=== PATIENT | female | born 1985 | race African-American/Black ===

== ENCOUNTER 2021-10-25 05:14 | Emergency (ER) | payer MEDICAID, SELFPAY ==
[2021-10-25 06:16] VITALS: BP 133/83; PULSE 88; RESP 18; TEMP 36.8; O2SAT 97; BMI 36.5
[2021-10-25 06:22] LABS: Glucose, Whole Blood 237 mg/dL (60-115)
--- NOTE | 2021-10-25 09:00 | ED_ITS ---
HPI - General Adult General Chief complaint: General Medical Stated complaint: needs insulin Time Seen by Provider: 10/25/21 08:38 Source: patient Mode of arrival: ambulatory Limitations: no limitations History of Present Illness HPI narrative: 36-year-old female with past medical history of diabetes presents to ED for refill of insulin. Patient states she is from [place] and ran out of her insulin. Patient states she takes Basaglar 20 units at bedtime. Patient states she called her primary care in [place] and informed her since she is in [place] she will have to be seen by provider in [facility] for insulin. Patient denies any chest pain, shortness of breath, weakness, dizziness, lethargy. Patient's secondary complaint is mild swelling in the right middle finger near the nail that has been present for least 12 days. Related Data Previous Rx's Medication Instructions Recorded cephalexin 500 mg capsule 500 mg PO QID 7 Days #28 cap 10/25/21 insulin glargine 100 unit/mL (3 20 unit (0.2 mL) SUBCUT QPM 30 10/25/21 mL) subcutaneous pen (Basaglar Days #15 ml KwikPen U-100 Insulin) naproxen 500 mg tablet 500 mg PO BID PRN 10 Days #20 tab 10/25/21 Allergies Allergy/AdvReac Type Severity Reaction Status Date / Time No Known Allergies Allergy Verified 10/25/21 06:19 Review of Systems Review of Systems: Medication refill. Right ring finger mild pain Yes all other systems are reviewed and are negative PMFSH Past Medical History Medical History (Updated 10/25/21 @ 09:11 by ADRIÁN Erazo) Diabetes Social History Social History Advance Directives: No Advance Directives Information Provided: No Patient : No Physical Exam Vital Signs: Vital Signs: Last Vital Signs Temp 98.3 F 10/25/21 06:16 Pulse 88 10/25/21 06:16 Resp 18 10/25/21 06:16 BP 133/83 10/25/21 06:16 Pulse Ox 97 10/25/21 06:16 BMI result Body Mass Index 36.5 Const: General: cooperative, healthy appearing, comfortable, no acute distress, well developed, alert, awake and Physically active Orientation/consciousness: patient oriented x3 HENMT: Head: Yes normal to inspection, Yes No palpable skull fracture present, Yes normocephalic, Yes atraumatic and No abrasion Eyes: General: appearance normal, both eyes and all related structures Neck: Neck: Yes normal visual inspection, Yes full ROM, Yes no lymphadenopathy, Yes no meningeal signs, Yes trachea midline, Yes supple, No anterior neck swelling and No tender Chest: Chest palpation & inspection: normal inspection of the chest and normal palpation of entire chest wall Resp: Effort & Inspection: normal respiratory effort and able to speak in complete sentences Auscultation: clear to auscultation bilaterally Cardio: Jugular venous distension: no JVD Heart sounds: S1 normal heart rob nd present and S2 normal heart sound present GI: Inspection: Yes normal to inspection and No abdominal wall ecchymosis Palpation (GI): Soft to palpation, not firm, nontender, no guarding and not rigid : General: No CVA tenderness and Yes no CVA tenderness Back/Spine/Pelvis: Back: no CVA tenderness, No CVA tenderness and No back tenderness Skin: General skin exam: no rashes or lesions noted and elasticity normal Neuro: General: patient oriented x3, gait normal, no meningeal signs and CN's II-XI intact bilaterally Cranial nerves: Yes CN's II-XII intact bilaterally Extrem: General: Yes normal to inspection and Yes full ROM Hand/finger images: 1. Slight swelling with tenderness on palpation. Negative for erythema, fluctuance, pus discharge, or foul odor. Negative ecchymosis. Patient has complete range of motion of finger and negative for any crepitus. Capillary refills intact. Right upper extremity motor/neuro/vascular exam intact Psych: Appearance: grossly normal, well kempt and not disheveled Course Course Course Narrative: Patient is well-appearing Reevaluation(s) Reevaluation #1: Patient need refills of Basaglar 20units. Patient also be discharged with antibiotics for a slight cellulitis of right middle finger Time: 09:10 Medical Decision Making [facility] Narrative Medical decision making narrative: medication refill and cellulitis Lab Data Labs: Lab Results 10/25/21 Range/Units 06:18 POC Glucose 237 H (60-115) mg/dL Discharge Plan Discharge Clinical Impression: Medication refill, Cellulitis of finger of right hand Patient Disposition: Home, Self-Care Instructions: Cellulitis (ED), Medicine Refill (ED) Additional Instructions: You were given a refill of your insulin which is scheduled every night. You also discharged with antibiotics for mild cellulitis of finger. Recommend warm compress for 15 minutes on right middle finger 4 times a day. Return to the ED for worsening pain of finger, swelling, pus discharge, redness, foul odor, chest pain, shortness of breath, headache, dizziness, or any other concerning symptoms. Please follow-up with primary care provider Prescriptions: New Basaglar KwikPen U-100 Insulin 100 unit/mL (3 mL) insulin pen 20 unit subcut QPM 30 Days Qty: 15 RF: 0 cephalexin 500 mg capsule 500 mg PO QID 7 Days Qty: 28 RF: 0 naproxen 500 mg tablet 500 mg PO BID PRN (Reason: pain) 10 Days Qty: 20 RF: 0 Interventions: ED Discharge Assessment Last Done: 10/25/21 09:41 Discharge Date/Time: 10/25/21 09:41 Print Language: Tanzanian
== END 2021-10-25 09:41 | disposition home or self-care (01) ==
PROVIDERS: Emergency Provider Emergency Medicine
DX: L03.113 Cellulitis of right upper limb (principal); Z76.0 Encounter for issue of repeat prescription; Z79.899 Other long term (current) drug therapy; Z79.4 Long term (current) use of insulin
CPT/HCPCS: 82947; 99283; 99284